=== PATIENT | male | born 1995 | race Caucasian/White ===

== ENCOUNTER 2018-04-17 09:45 | Day surgery (SDC) | payer MEDICAID ==
[~2018-04-17] VITALS: Ht 182.9 cm; Wt 79.4 kg
[2018-04-17] VITALS (15 sets, daily range): BP systolic 98–140; BP diastolic 52–95
[~2018-04-17 09:45] MED LIST: Cefazolin 2GM/50ML dext iso,osmotic IVPB IV ONE; NO HOME MEDS; VANCOMYCIN INJ 1000 MG in NORMAL SALINE 250ml IV.SOLN IV ONE; famotidine 20mg tablet PO ONE; ringers solution, lacted 1,000 ML IV SCH
[2018-04-17] MEDS ORDERED: LIDOcaine 1% (10mg/ml) 2ml vial ONE (10:45)
[2018-04-17] MEDS ORDERED: sevoflurane 250ml liquid IH ONE (12:50)
[2018-04-17] MEDS ORDERED: midazolam 2 mg/2 ml injection ONE (12:50)
[2018-04-17] MEDS ORDERED: fentaNYL /PF 50mcg/ml 5ml ampule ONE (12:51)
[2018-04-17] MEDS ORDERED: LIDOcaine 2% (20mg/ml) 5ml vial ONE (12:55)
[2018-04-17] MEDS ORDERED: propofol inj 20 ML IV ONE (12:55)
[2018-04-17] MEDS ORDERED: BUPIVAcaine/PF 2.5mg/ml (0.25%) 10ml vial ONE (13:16)
[2018-04-17] MEDS ORDERED: ringers solution, lacted 1,000 ML IV SCH (13:57)
[2018-04-17] MEDS ORDERED: dexamethasone sod phosphate 4mg/ml inj. ONE (13:58)
[2018-04-17] MEDS ORDERED: ondansetron/PF 4mg/2ml inj ONE (13:58)
[2018-04-17] MEDS ORDERED: proCHLORperazine 10 MG/2 ml inj IV PRN (14:00)
[2018-04-17] MEDS ORDERED: meperidine/PF 25mg/ml syringe IV PRN ×2 (14:00)
[2018-04-17] MEDS ORDERED: ondansetron/PF 4mg/2ml inj IV PRN (14:00)
[2018-04-17] MEDS ORDERED: morphine 4 MG/ML inj SYRINge IV PRN ×2 (14:00)
[2018-04-17] MEDS: meperidine/PF 25mg/ml syringe IV PRN ×3 (15:02→16:22)
[2018-04-17] MEDS ORDERED: HYDROmorphone inj. 0.5 MG/0.5 ML DISP.SYRIN IV PRN ×2 (15:55)
[2018-04-17] MEDS ORDERED: HYDROmorphone 1 mg/ml syringe ONE (16:22)
[2018-04-17] MEDS ORDERED: HYDROmorphone 1 mg/ml syringe IV PRN ×2 (16:22→16:23)
== END 2018-04-17 16:43 | disposition home or self-care (01) ==
LOC: PAS 09:45
PROVIDERS: ATTEND Orthopaedic Surgery
DX: T84.84XA Pain due to internal orthopedic prosthetic devices, implants and grafts, initial encounter (principal); G89.18 Other acute postprocedural pain; Y83.8 Other surgical procedures as the cause of abnormal reaction of the patient, or of later complication, without mention of misadventure at the time of the procedure; Y92.89 Other specified places as the place of occurrence of the external cause; M79.2 Neuralgia and neuritis, unspecified; Z98.890 Other specified postprocedural states; Z79.899 Other long term (current) drug therapy
CPT/HCPCS: 20680; 87070; 87075; A6449; J0690; J1100; J1170; J2001; J2175; J2250; J2405; J2704; J3010; J3370; J3490; J7120; A6250; A7000